=== PATIENT | male | born 2000 | race Caucasian/White ===

== ENCOUNTER 2019-05-04 16:54 | Outpatient (REF) | payer MEDICAID, SELFPAY | END 2019-05-04 17:14 | LOC: NCHCN 16:54 | PROVIDERS: Visit Provider Nurse Practitioner Family | DX: R30.9 Painful micturition, unspecified (principal) | CPT/HCPCS: 87086 ==

== ENCOUNTER 2022-04-17 18:29 | Outpatient (REF) | payer MEDICAID, SELFPAY ==
[2022-04-17 21:22] LABS: Abs Immature Grans 0.01 10^3/uL (0.0-0.06); Absolute Basophil Count 0.08 10^3/uL (0.0-0.2); Absolute Eosinophil Count 0.23 10^3/uL (0.0-0.7); Absolute Lymphocyte Count 1.38 10^3/uL (1.2-3.4); Absolute Monocyte Count 0.31 10^3/uL (0.1-0.8); Absolute Neutrophil Count 2.63 10^3/uL (1.2-6.7); Basophils % 1.7; HCT 43.5 % (40.0-50.0); HGB 14.6 g/dL (13.5-17.5); Immature Grans % 0.2; Lymphocytes % 29.7; MCH 30.3 pg (27.0-33.0); MCHC 33.6 % (32.0-36.0); MCV 90 fL (80-95); MPV 11.7 fL (8.0-11.0); Monocytes % 6.7; Neutrophils % 56.7; Platelet Count 146 10^3/uL (130-400); RBC 4.82 10^6/uL (4.36-5.78); RDW 12.9 % (11.8-14.1); RDW-SD 42.8 fL; WBC 4.64 10^3/uL (4.4-10.8)
[2022-04-17 21:42] LABS: Anion Gap 6.3 mmol/L (3-11); BUN 11 mg/dL (7-18); CO2 28.7 mmol/L (21.0-32.0); CREATININE 1.1 mg/dL (0.70-1.30); Calcium 9.3 mg/dL (8.5-10.1); Chloride 107 mmol/L (98-107); Estimated GFR 96.74 (mL/min/1.73m2); Glucose 96 mg/dL (74-106); Potassium 3.6 mmol/L (3.5-5.1); Sodium 142 mmol/L (136-145); TSH (W/Ref FT4) 1.77 uIU/mL (0.36-3.74)
== END 2022-04-17 18:30 | disposition home or self-care (01) ==
LOC: NCHCN 18:29
PROVIDERS: Visit Provider Family Medicine
DX: R63.4 Abnormal weight loss (principal)
CPT/HCPCS: 80048; 84443; 85025

== ENCOUNTER 2023-08-26 12:21 | Outpatient (REF) | payer MEDICAID, SELFPAY ==
[2023-08-26 16:05] LABS: Abs Immature Grans 0.02 10^3/uL (0.0-0.06); Absolute Basophil Count 0.09 10^3/uL (0.0-0.2); Absolute Eosinophil Count 0.13 10^3/uL (0.0-0.7); Absolute Lymphocyte Count 1.96 10^3/uL (1.2-3.4); Absolute Monocyte Count 0.49 10^3/uL (0.1-0.8); Basophils % 1.3 %; Eosinophils % 1.9 %; HCT 43.8 % (40.0-50.0); HGB 14.4 g/dL (13.5-17.5); Immature Grans % 0.3 %; Lymphocytes % 28.9 %; MCH 29.1 pg (27.0-33.0); MCHC 32.9 % (32.0-36.0); MCV 89 fL (80-95); MPV 12.3 fL (8.0-11.0); Monocytes % 7.2 %; Neutrophils % 60.4 %; Platelet Count 149 10^3/uL (130-400); RBC 4.94 10^6/uL (4.36-5.78); RDW-SD 42.4 fL; WBC 6.79 10^3/uL (4.4-10.8)
[2023-08-26 16:24] LABS: ALT 40 U/L (16-63); AST 25 U/L (15-37); Albumin 4.2 g/dL (3.4-5.0); Alkaline Phosphatase 48 U/L (46-116); Anion Gap 7.7 mmol/L (3-11); BUN 14 mg/dL (7-18); Bilirubin, Total 0.2 mg/dL (0.2-1.0); CO2 30.3 mmol/L (21.0-32.0); CREATININE 1.1 mg/dL (0.70-1.30); Calcium 9.1 mg/dL (8.5-10.1); Chloride 104 mmol/L (98-107); Estimated GFR 96.14 (mL/min/1.73m2); FREE T4 0.98 ng/dL (0.76-1.46); Glucose 100 mg/dL (74-106); Potassium 4.4 mmol/L (3.5-5.1); Sodium 142 mmol/L (136-145); TSH 3.24 uIU/Ml (0.36-3.74); Total Protein 7.1 g/dL (6.4-8.2)
== END 2023-08-26 12:22 | disposition home or self-care (01) ==
LOC: NCHCN 12:21
PROVIDERS: Visit Provider Physician Assistant
DX: F34.89 Other specified persistent mood disorders (principal)
CPT/HCPCS: 80053; 84439; 84443; 85025